=== PATIENT | female | born 1980 | race Caucasian/White ===

== ENCOUNTER 2022-11-27 23:14 | Emergency (ER) | payer BC ==
[~2022-11-27] VITALS: Ht 167.6 cm; Wt 61.2 kg
[2022-11-27 23:14] VITALS: BP_SYST 126
--- NOTE | 2022-11-27 23:14 | NUR ---
Triaged patient and placed in ER bed 7 for evaluation. Bed set in lowest position with side rails up and seizure pads in place. Instructed to notify ED staff for any changes in condition or worsening of symptoms while waiting to be seen by a provider. Patient verbalized understanding.
--- NOTE | 2022-11-27 23:32 | NUR ---
PT FROM HOME BIBA WITH C/O OF SEIZURE. EMS RERORTS SEZIURE WITH TONIC CLONIC, LAST 2 MINUTES AND WITNESSED. PT A&O X3, AND FOLLOWING SIMPLE COMMANDS. PT REPORTS RIGHT ARM PAIN 5/10. PT TACHYCARDIC AT 106 BPM. SAFETY AND SEIZURE PRECAUTIONS IN PLACE AND CONNECTED TO WAD IMPREGNATOR.
[2022-11-27] MEDS ORDERED: levETIRAcetam 1,000 MG in NS 90 ML IV ONE (23:45)
[2022-11-27] MEDS ORDERED: NACL 0.9% 1,000 ML IV ONE (23:45)
--- NOTE | 2022-11-28 00:02 | NUR ---
FAMILY BROUGHT TO BEDSIDE.
[2022-11-28] MEDS ORDERED: LEVE500T9 PO (00:09)
[2022-11-28 00:23] LABS: BASOPHILS % (AUTO) 0.3 % (0.0-2.0); EOSINOPHILS # (AUTO) 0.2 K/uL (0.0-0.4); EOSINOPHILS % (AUTO) 2.8 % (0.0-4.0); HEMATOCRIT 30.8 % (36-48); HEMOGLOBIN 9.8 g/dL (12.0-16.0); LYMPHOCYTES # (AUTO) 2.3 K/uL (1.0-5.5); LYMPHOCYTES % (AUTO) 26.9 % (20.5-51.5); MEAN CORPUSCULAR HEMOGLOBIN 23 pg (27-31); MEAN CORPUSCULAR HGB CONC 32 % (32-36); MEAN CORPUSCULAR VOLUME 71 fL (79.0-98.0); MONOCYTES # (AUTO) 0.7 K/uL (0.0-1.0); MONOCYTES % (AUTO) 7.9 % (1.7-9.3); NEUTROPHILS # (AUTO) 5.2 K/uL (1.8-7.7); NEUTROPHILS % (AUTO) 62.1 % (40.0-70.0); PLATELET COUNT (AUTO) 374 K/uL (130-430); RED BLOOD CELL COUNT(AUTO) 4.36 MIL/uL (4.2-6.2); RED CELL DISTRIBUTION WIDTH 14.9 % (9.0-15.0); WHITE BLOOD COUNT (AUTO) 8.4 K/uL (4.8-10.8)
[2022-11-28 00:24] LABS: ALBUMIN 3.5 g/dL (3.4-4.8); CALCIUM 8.8 mg/dL (8.4-11.0); CREATININE 1.05 mg/dL (0.55-1.30); TOTAL BILIRUBIN 0.5 mg/dL (0.0-1.0)
--- NOTE | 2022-11-28 00:34 | NUR ---
DR. GRIJALVA AT BEDSIDE WITH PATIENT FOR MSE.
[2022-11-28] MEDS ORDERED: ALPR0.5T PO (00:50)
[2022-11-28 01:07] VITALS: BP_SYST 135
--- NOTE | 2022-11-28 01:07 | NUR ---
Patient given written and verbal discharge instructions and verbalizes understanding. ER DR. GRIJALVA discussed with patient the results and treatment provided. Patient in stable condition. ID arm band removed. IV catheter removed intact and dressing applied, no active bleeding. Rx of XANAX AND KEPPRA given. Patient educated on pain management and to follow up with PMD. Pain Scale 0. Opportunity for questions provided and answered. Medication side effect fact sheet provided.
== END 2022-11-28 01:07 | disposition home or self-care (01) ==
LOC: SED 23:14
DX: R56.9 Unspecified convulsions (principal); Z79.899 Other long term (current) drug therapy
CPT/HCPCS: 36415; 80053; 81025; 82962; 85025; 96365; 99284

== ENCOUNTER 2023-11-28 05:48 | Emergency (ER) | payer BC ==
[~2023-11-28] VITALS: Ht 162.6 cm; Wt 72.6 kg
[~2023-11-28 05:48] MED LIST: ALPR0.5T PO; LEVE500T9 PO
[2023-11-28 05:50] VITALS: BP_SYST 159; PULSE 81; RESP 16; TEMP 98.7; O2SAT 99
[2023-11-28 06:07] VITALS: BP_SYST 159; PULSE 81; RESP 16; TEMP 98.7; O2SAT 99
== END 2023-11-28 06:14 ==
LOC: SED 05:48
DX: Z02.89 Encounter for other administrative examinations (principal); I10 Essential (primary) hypertension; Z88.6 Allergy status to analgesic agent; Z88.8 Allergy status to other drugs, medicaments and biological substances; Z79.899 Other long term (current) drug therapy
CPT/HCPCS: 99283